=== PATIENT | female | born 1980 | race Caucasian/White ===

== ENCOUNTER 2018-09-13 22:13 | Emergency (ER) | payer SELFPAY ==
[2018-09-13 22:37] VITALS: BMI 36.1
--- NOTE | 2018-09-13 23:14 | PDOC ---
History of Present Illness - General Chief Complaint: Vaginal Bleeding Stated Complaint: BLEEDING ( 3 MONTHS) Time Seen by Provider: 09/13/18 23:11 History Source: Patient Exam Limitations: No Limitations - History of Present Illness Initial Comments: 09/13/18 23:50 38 year old female with no PMH 14 weeks A1 presented to ED for vaginal bleeding x1 hour. Pt admitted to mild generalized abdominal pain. Pt stated she had two episodes of vomiting today, but that she vomits everyday with this . She stated she had an US last week and was told everything was normal. Allergies: NKDA OBGYN: Dr. Crane Past History - Past Medical History Allergies/Adverse Reactions: Allergies Allergy/AdvReac Type Severity Reaction Status Date / Time No Known Allergies Allergy Verified 09/13/18 22:34 Home Medications: Ambulatory Orders Nitrofurantoin Monohyd/M-Cryst [Macrobid -] 100 mg PO BID #10 capsule 09/14/18 CVA: No COPD: No - Surgical History Cholecystectomy: No Gastric Stapling: No GI Surgery: No - Suicide/Smoking/Psychosocial Hx Smoking History: Never smoked Have you smoked in the past 12 months: No Information on smoking cessation initiated: No Hx Alcohol Use: No Drug/Substance Use Hx: No Review of Systems - Review of Systems Able to Perform ROS?: Yes Comments:: 09/13/18 23:51 General: denied fever, chills, night sweats, generalized weakness. HEENT: denied sore throat, rhinorrhea, ear pain. Heart: denied chest pain, palpitations, syncope, diaphoresis. Respiratory: denied shortness of breath, cough, sputum production, hemoptysis. Abdomen: admitted to abdominal pain, nausea, vomiting. denied diarrhea, constipation, blood in stool. : denied dysuria, increased urinary frequency, hematuria, urinary incontinence , flank pain. Back: denied back pain. Musculoskeletal: denied joint pain, muscle pain, joint swelling. Neurological: denied headache, dizziness, numbness, tingling, weakness. Skin: denied rash, laceration, abrasion. *Physical Exam - Vital Signs Last Vital Signs Temp Pulse Resp BP Pulse Ox 98.5 F 109 H 20 147/84 98 09/13/18 22:34 09/13/18 22:34 09/13/18 22:34 09/13/18 22:34 09/13/18 22:34 - Physical Exam Comments: 09/13/18 23:53 Constitutional: Well-nourished, Well-developed, appearing stated age. HEENT: head is normocephalic, atraumatic. EOMI. PERRLA. Neck: supple. Full ROM. Heart: regular rhythm. no murmurs, rubs or gallops. Lungs: clear to auscultation bilaterally. no crackles, rhonchi or wheezing. no stridor. Abdomen: soft, nontender. normal bowel sounds. no rebound, guarding, masses. Pelvic: normal external genitalia. clotted blood in vault. cervix closed. no CMT. no adnexal tenderness bilaterally. Extremities: Peripheral pulses intact. No lower extremity edema. Neurological: CN 2-12 grossly intact. Moves all four extremities. Psych: awake, alert, oriented x3. Follows commands. Answers questions appropriately. Moderate Sedation - Procedure Monitoring Vital Signs: Procedure Monitoring Vital Signs Temperature 98.5 F 09/13/18 22:34 Pulse Rate 109 H 09/13/18 22:34 Respiratory Rate 20 09/13/18 22:34 Blood Pressure 147/84 09/13/18 22:34 O2 Sat by Pulse Oximetry (%) 98 09/13/18 22:34 ED Treatment Course - LABORATORY CBC & Chemistry Diagram: 09/13/18 23:23 09/13/18 23:23 Medical Decision Making - Medical Decision Making 09/13/18 23:53 38 year old female with no PMH 14 weeks A1 presented to ED for vaginal bleeding x1 hour. Initial Vital Signs Temp Pulse Resp BP Pulse Ox 98.5 F 109 H 20 147/84 98 09/13/18 22:34 09/13/18 22:34 09/13/18 22:34 09/13/18 22:34 09/13/18 22:34 Afebrile. Tachycardic. No tachypnea. Mild hypertension. No hypoxia on room air. 09/13/18 23:54 CBC WBC 10.7 K/mm3 (4.0-10.0) H 09/13/18 23:23 RBC 4.22 M/mm3 (3.60-5.2) 09/13/18 23:23 Hgb 13.0 GM/dL (10.7-15.3) 09/13/18 23:23 Hct 37.4 % (32.4-45.2) 09/13/18 23:23 MCV 88.7 fl (80-96) 09/13/18 23:23 MCH 30.7 pg (25.7-33.7) 09/13/18 23:23 MCHC 34.7 g/dl (32.0-36.0) 09/13/18 23:23 RDW 14.9 % (11.6-15.6) 09/13/18 23:23 Plt Count 241 K/MM3 (134-434) 09/13/18 23:23 MPV 10.7 fl (7.5-11.1) 09/13/18 23:23 Absolute Neuts (auto) 7.7 K/mm3 (1.5-8.0) 09/13/18 23:23 Neutrophils % 71.7 % (42.8-82.8) 09/13/18 23: Lymphocytes % 20.1 % (8-40) 09/13/18 23: Monocytes % 6.9 % (3.8-10.2) 09/13/18 23: Eosinophils % 0.9 % (0-4.5) 09/13/18 23: Basophils % 0.4 % (0-2.0) 09/13/18 23: Nucleated RBC % 0 % (0-0) 09/13/18 23:23 Mild leukocytosis. No left shift. No anemia. No thrombocytopenia. 09/14/18 00:15 CMP Sodium 135 mmol/L (136-145) L 09/13/18 23:23 Potassium 4.3 mmol/L (3.5-5.1) 09/13/18 23:23 Chloride 106 mmol/L (98-107) 09/13/18 23:23 Carbon Dioxide 22 mmol/L (21-32) 09/13/18 23:23 Anion Gap 7 MMOL/L (8-16) L 09/13/18 23:23 BUN 7 mg/dL (7-18) 09/13/18 23:23 Creatinine 0.4 mg/dL (0.55-1.3) L 09/13/18 23:23 Creat Clearance w eGFR > 60 (>60) 09/13/18 23:23 Random Glucose 113 mg/dL (74-106) H 09/13/18 23:23 Calcium 8.8 mg/dL (8.5-10.1) 09/13/18 23:23 Total Bilirubin 0.2 mg/dL (0.2-1) 09/13/18 23:23 AST 36 U/L (15-37) 09/13/18 23:23 ALT 29 U/L (13-61) 09/13/18 23:23 Alkaline Phosphatase 97 U/L (45-117) 09/13/18 23:23 Total Protein 7.1 g/dl (6.4-8.2) 09/13/18 23:23 Albumin 3.1 g/dl (3.4-5.0) L 09/13/18 23:23 No electrolyte abnormalities. No QUANG. No transaminitis. Urine Test Results Urine Color Yellow 09/13/18 22:49 Urine Appearance Clear 09/13/18 22:49 Urine pH 6.0 (5.0-8.0) 09/13/18 22:49 Ur Specific [place] 1.008 (1.010-1.035) L 09/13/18 22:49 Urine Protein 1+ (NEGATIVE) H 09/13/18 22:49 Urine Glucose (UA) Negative (NEGATIVE) 09/13/18 22:49 Urine Ketones Trace (NEGATIVE) H 09/13/18 22:49 Urine Blood 3+ (NEGATIVE) H 09/13/18 22:49 Urine Nitrite Negative (NEGATIVE) 09/13/18 22:49 Urine Bilirubin Negative (<2.0 mg/dL) 09/13/18 22:49 Ur Leukocyte Esterase Negative (NEGATIVE) 09/13/18 22:49 3+ blood likely contaminate from vaginal bleeding. WBC = 32 Possible UTI, pt is , will treat. Protein in urine. 09/14/18 00:50 B quant [id number] US report: single live intrauterine , 15 weeks 6 days, FHR 157 bpm, closed cervix, anterior placenta with previa, 1.8 cm portion of placenta appears over the os. 5.0 cm fibroid posterior uterus. 09/14/18 01:05 T/S = O+ - No Rhogam needed First dose macrobid given in ED. Prescription sent to pharmacy. Pt and informed of results and need to follow up with OBGYN. Pt given copy of US report. Pt discharged *DC/Admit/Observation/Transfer Diagnosis at time of Disposition: Vaginal bleeding during , Placenta previa - Discharge Dispostion Disposition: HOME Condition at time of disposition: Stable Decision to Admit order: No - Prescriptions Prescriptions: Nitrofurantoin Monohyd/M-Cryst [Macrobid -] 100 mg PO BID #10 capsule - Referrals - Patient Instructions Printed Discharge Instructions: DI for Placenta Previa, DI for Vaginal Bleeding During , DI for Urinary Tract Infection (UTI) Additional Instructions: You were seen today for vaginal bleeding. Your lab work was normal. Your urine analysis showed a possible urinary tract infection. I have sent a prescription to your pharmacy for an antibiotic. Take as advised on label. Your Ultrasound showed a live in the uterus, but that the placenta is overlying the cervix, which is called Placenta Previa. Follow up with your OBGYN Dr. Crane in 1-2 days. Bring the paperwork given to you today to your appointment. Return to the Emergency Department for increasing pain, fever, increasing vomiting from normal vomiting, lightheadedness like you may pass out, chest pain, shortness of breath, or any other new, worsening or concerning symptoms. ----- BULGARIAN TRANSLATION VIA GOOGLE TRANSLATE Hoy te vieron por sangrado vaginal. Tu trabajo de laboratorio fue normal. Fan anlisis de orina mostr dori posible infeccin del tracto urinario. He enviado dori receta a fan farmacia para un antibitico. Alba nuvia se aconseja en la etiqueta. Fan ecografa mostr un embarazo vivo en el tero, viktor que la placenta est sobre el payton uterino, que se llama Placenta Previa. Kassie un seguimiento con fan gineclogo Dr. Crane en 1-2 lopez. Lleve el papeleo que se le entreg hoy a fan carlos. Regrese al Departamento de Emergencias para aumentar el dolor, la fiebre, los vmitos del embarazo normal, los vmitos, el mareo nuvia si se desmayara, el dolor en el pecho, la falta de aliento o cualquier otro sntoma nuevo, que empeore o relacionado. Print Language: BULGARIAN - Post Discharge Activity Forms/Work/School Notes: Back to Work
[2018-09-13 23:33] LABS: BASO % 0.4 % (0-2.0); EOS % 0.9 % (0-4.5); HEMATOCRIT 37.4 % (32.4-45.2); LYMPH % 20.1 % (8-40); MCH 30.7 pg (25.7-33.7); MCHC 34.7 g/dl (32.0-36.0); MEAN CELL VOLUME 88.7 fl (80-96); MEAN PLT VOLUME 10.7 fl (7.5-11.1); MONO % 6.9 % (3.8-10.2); NEUT % 71.7 % (42.8-82.8); PLATELET COUNT 241 K/MM3 (134-434); RBC 4.22 M/mm3 (3.60-5.2); RDW 14.9 % (11.6-15.6); WHITE BLOOD COUNT 10.7 K/mm3 (4.0-10.0)
--- NOTE | 2018-09-13 23:53 | PDOC ---
Attending Attestation - Resident Resident Name: Ana Gabriel - ED Attending Attestation I have performed the following: I have examined & evaluated the patient, The case was reviewed & discussed with the resident, I agree w/resident's findings & plan, Exceptions are as noted - HPI HPI: 09/13/18 23:52 38 yo female states her last pelvic US revealed a 13 week SL IUP one week ago - Physicial Exam PE: 09/14/18 00:01 wnwd 38 yo female p/w vaginal bleeding head ncat neck supple lungs cta b/l cvs [id number] abd no rebound,no guarding ext no edema skin warm and dry pelvic already done by Dr Gabriel who reports os closed, sm blood clot in vaginal vault neuro axox3, no gross focal neuro deficits psych appropriate - Medical Decision Making 09/14/18 00:03 PMH A1 plann pelvic US,type and screen,UA,comp 09/14/18 00:04
[2018-09-14 00:03] LABS: URINE APPEARANCE CLEAR; URINE BILIRUBIN NEGATIVE (<2.0 mg/dL); URINE COLOR YELLOW; URINE GLUCOSE (UA) NEGATIVE (NEGATIVE); URINE KETONE TRACE (NEGATIVE); URINE LEUK ESTERASE NEGATIVE (NEGATIVE); URINE NITRITE NEGATIVE (NEGATIVE); URINE PROTEIN 1+ (NEGATIVE); URINE UROBILINOGEN NEGATIVE mg/dL (0.2-1.0)
[2018-09-14 00:14] LABS: ALBUMIN 3.1 g/dl (3.4-5.0); ALK PHOS 97 U/L (45-117); ANION GAP 7 MMOL/L (8-16); BILIRUBIN,TOTAL 0.2 mg/dL (0.2-1); BLOOD UREA NITROGEN 7 mg/dL (7-18); CALCIUM 8.8 mg/dL (8.5-10.1); CHLORIDE 106 mmol/L (98-107); CO2 22 mmol/L (21-32); CREATININE 0.4 mg/dL (0.55-1.3); GLUCOSE,RANDOM 113 mg/dL (74-106); POTASSIUM 4.3 mmol/L (3.5-5.1); SGOT/AST 36 U/L (15-37); SGPT/ALT 29 U/L (13-61); SODIUM 135 mmol/L (136-145); TOT PROT 7.1 g/dl (6.4-8.2)
[2018-09-14 00:19] LABS: CALCIUM OXALATE CRYSTALS FEW /hpf (NONE SEEN); EPI CELLS RARE /HPF (FEW); URINE BACTERIA RARE /hpf (NONE SEEN)
[2018-09-14 01:13] LABS: INR 1.01 (0.83-1.09); PROTHROMBIN TIME (PATIENT) 11.9 SEC (9.7-13.0)
[2018-09-14] MEDS ORDERED: NITROFURANTOIN MACROCRYSTAL 50 MG CAPSULE (FP) PO SCH (01:15)
[2018-09-14] MEDS ORDERED: NITROFURANTOIN MACROCRYSTAL 50 MG CAPSULE (FP) ONE (01:18)
[2018-09-14 01:28] VITALS: BP 118/78; PULSE 99; TEMP 98.1
== END 2018-09-14 01:32 | disposition home or self-care (01) ==
LOC: JER 22:13
DX: O26.892 Other specified pregnancy related conditions, second trimester (principal); O44.12 Complete placenta previa with hemorrhage, second trimester; O23.32 Infections of other parts of urinary tract in pregnancy, second trimester; Z3A.15 15 weeks gestation of pregnancy
CPT/HCPCS: 36415; 76801-TC; 76817-TC; 80053; 81003; 81015; 84702; 85025; 85610; 85730; 86850; 86900; 86901; 87086; 99283-25

== ENCOUNTER → 2021-08-27 | Emergency (ER) | payer OTHER ==
[~2021-08-27] MED LIST: FAMOTIDINE 20 MG/50 ML IVPB 20 MG/50 ML MG IVPB ONE; ONDANSETRON 4 MG/2 ML VIAL IVPUSH ONE; ONDANSETRON 4 MG/2 ML VIAL ONE; SODIUM CHLORIDE 0.9% 500 ML INFUS.BAG IV ONE; SUCRALFATE 1 GM TABLET (FP) ONE; SUCRALFATE 1 GM TABLET (FP) PO ONE
[2021-08-27 18:01] VITALS: BP 152/82; PULSE 107; TEMP 97.8; BMI 37.0
[2021-08-27 23:20] LABS: BASO % 1.1 % (0-2.0); EOS % 0.9 % (0-4.5); HEMATOCRIT 41.3 % (32.4-45.2); HEMOGLOBIN 13.7 GM/dL (10.7-15.3); LYMPH % 21.2 % (8-40); MCH 27.8 pg (25.7-33.7); MCHC 33.1 g/dl (32.0-36.0); MEAN PLT VOLUME 10.2 fl (7.5-11.1); MONO % 5.8 % (3.8-10.2); PLATELET COUNT 239 10^3/uL (134-434); RBC 4.91 M/mm3 (3.60-5.2); RDW 14.9 % (11.6-15.6); WHITE BLOOD COUNT 10.4 K/mm3 (4.0-10.0)
[2021-08-27 23:41] LABS: ALBUMIN 3.9 g/dl (3.4-5.0); CALCIUM 9.4 mg/dL (8.5-10.1)
[2021-08-27 23:43] LABS: BLOOD UREA NITROGEN 7.5 mg/dL (7-18)
[2021-08-27 23:44] LABS: CREATININE 0.6 mg/dL (0.55-1.3)
[2021-08-27 23:46] LABS: BILIRUBIN,TOTAL 0.4 mg/dL (0.2-1); TOT PROT 7.9 g/dl (6.4-8.2)
[2021-08-28 03:11] LABS: EPI CELLS >36 /uL (0-25.1); HYALINE CASTS 1 /uL (0-3.1); PH,URINE 5.5 (5.0-8.0); URINE APPEARANCE CLOUDY; URINE BACTERIA 208 /uL (0-1359); URINE BILIRUBIN NEGATIVE (NEGATIVE); URINE COLOR YELLOW; URINE GLUCOSE (UA) NEGATIVE (NEGATIVE); URINE KETONE 2+ (NEGATIVE); URINE LEUK ESTERASE NEGATIVE (NEGATIVE); URINE NITRITE NEGATIVE (NEGATIVE); URINE PROTEIN NEGATIVE (NEGATIVE); URINE RBC 20 /uL (0-23.9); URINE UROBILINOGEN 0.2 mg/dL (0.2-1.0); URINE WBC 35 /uL (0-25.8)
[2021-08-28 08:31] LABS: YEAST NO SEEN (NEGATIVE)
== END | disposition home or self-care (01) ==
LOC: JER 17:22
PROC: 3E033GC Introduction of Other Therapeutic Substance into Peripheral Vein, Percutaneous Approach (ICD-10-PCS; principal; 2021-08-27)
PROC: 3E033GC Introduction of Other Therapeutic Substance into Peripheral Vein, Percutaneous Approach (ICD-10-PCS; 2021-08-27)
DX: R10.13 Epigastric pain (principal); N39.0 Urinary tract infection, site not specified; N83.291 Other ovarian cyst, right side
CPT/HCPCS: 36415; 74177-TC; 80053; 81003; 83690; 84484; 84703; 85025; 87086; 93005; 93010; 99285-25